=== PATIENT | female | born 1995 | race Caucasian/White ===

== ENCOUNTER 2017-05-14 10:59 | Emergency (ER) | payer MEDICAID ==
[~2017-05-14] VITALS: Ht 162.6 cm; Wt 60.6 kg
[2017-05-14 11:16] VITALS: BP 123/78
[2017-05-14] MEDS ORDERED: DIPH,PERTUSS(ACELL),TET VAC/PF 0.5 ML IM-VACC ONE ×2 (11:30)
== END 2017-05-14 12:13 | disposition home or self-care (01) ==
LOC: ED 12:07
DX: S00.87XA Other superficial bite of other part of head, initial encounter (principal); W54.0XXA Bitten by dog, initial encounter; Y93.89 Activity, other specified; Y92.009 Unspecified place in unspecified non-institutional (private) residence as the place of occurrence of the external cause; Y99.9 Unspecified external cause status
CPT/HCPCS: 90471; 90715

== ENCOUNTER 2017-05-16 07:30 | Emergency (ER) | payer MEDICAID ==
[~2017-05-16] VITALS: Ht 162.6 cm; Wt 55.0 kg
[2017-05-16 07:32] VITALS: BP 117/87
[2017-05-16] MEDS ORDERED: CEFTRIAXONE 1,000 MG IM ONE (08:00)
[2017-05-16] MEDS ORDERED: SULFAMETH./TRIMETHOPRIM DS 800MG/160MG TABLET PO ONE (08:00)
[2017-05-16] MEDS ORDERED: SULFAMETH./TRIMETHOPRIM DS 800MG/160MG TABLET ONE (08:11)
[2017-05-16] MEDS ORDERED: CEFTRIAXONE 1,000 MG ONE (08:11)
== END 2017-05-16 08:23 | disposition home or self-care (01) ==
LOC: ED 08:11
DX: S00.87XA Other superficial bite of other part of head, initial encounter (principal); L08.9 Local infection of the skin and subcutaneous tissue, unspecified; W54.0XXA Bitten by dog, initial encounter; Y93.89 Activity, other specified; Y92.89 Other specified places as the place of occurrence of the external cause; Y99.8 Other external cause status
CPT/HCPCS: 96372; 99283; J0696